=== PATIENT | male | born 1990 | race Caucasian/White ===

== ENCOUNTER 2017-02-14 22:41 | Emergency (ER) | payer MEDICAID ==
[~2017-02-14] VITALS: Ht 185.4 cm; Wt 83.9 kg
--- NOTE | 2017-02-14 23:14 | Emergency Room Report ---
History of Present Illness Time Seen by [id number] Presenting Problem in Triage Pt arrived:Walked Presenting Problem:PT. STATES RIGHT TESTICULAR PAIN AND PAIN DOWN HIS BACK. PT. ALSO STATES "I THINK I HAD A FEVER, I WAS SHAKING." PT. 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 N Clinical Suspician of Infection? N Mental Status: 1 - Regular (Normal Baseline) Sepsis Risk:Low Sepsis Risk Have you (or family members/close friends) recently traveled outside the [place]? N If Yes, where/when: Have you had exposure to infectious disease within the past month? N TB? Other? Specify: Source patient, RN notes reviewed, family, old records Exam Limitations no limitations Comment acute rt flank and testicular pain which started tonight assoc with n/v and shaking Cardiac Chest Pain Chest pain indicative of cardiac No Timing/Duration this evening Severity moderate ALLERGIES Coded Allergies: cefaclor (From [facility]) (I-RASH 02/14/17) History Medical History General CAD? No Angina: No MN: No Hypertension? No Hyperlipidemia? No CHF? No DVT? No PE? No COPD? No Asthma? No Anemia? No GERD? No Gastric ulcers? No GI Bleed? No Hernia? No Thyroid Problems? No Hypothyroidism? No CVA? No Seizures? No Diabetes? No Renal Insuffiency? Yes End Stage Renal Disease? No UTI? No Stones? No BPH? No GB Disease: No Nephritic Syndrome? No Asplenia? No Hepatitis? No Sickle Cell Disease? No Arthritis? No Migraines? No Cataracts? No Glaucoma? No MRSA? No HIV? No TB? No Anxiety? No Depression? No Cancer? No Immunization Hx DT/Tetanus > 10 Years Ago Surgical Hx Previous Surgery?Y PCL TONSILECTOMY KIDNEY DIALYSIS Social History Smoking Hx Smoker: Current Every Day Smoker Tobacco: No Type Cigarettes Are you/the child exposed to second-hand smoke: Yes Alcohol Alcohol: No Drugs none Additionial History Additional History no hematuria Review of Systems All Other Systems Reviewed and Negative Constitutional denies fever Eyes denies drainage ENT denies: ear pain, epistaxis, throat pain. Respiratory denies cough, denies shortness of breath, denies wheezing Cardiovascular denies chest pain, denies syncope Gastrointestinal denies abdominal pain, denies nausea, denies vomiting Genitourinary see HPI, scrotal/testicular pain. denies: dysuria, frequency, hesitancy, hematuria. Musculoskeletal denies joint pain, denies neck pain Skin denies rash Psychiatric/Neurological denies headache, denies seizure Physical Exam Vital Signs Vital Signs Date Time Temp Pulse Resp B/P Pulse O2 O2 Flow FiO2 Ox Delivery Rate 02/14 2350 89 20 150/77 97 02/14 2313 20 02/14 2246 98.5 83 22 143/76 100 - WBC >12,000 or <4,000 or 10% bands? 2 or more SIRS Criteria Met? B/P:150/77 MAP:98 Creatinine >2.0? UA output<0.5ml/kg/hr for 2 hrs? Platelet count >100,000? Lactate >2.0mmol/1? INR >1.2 or PTT > than 60 sec? Evidence of Organ Dysfunction? Provider documented clinical suspician of infection? N Sepsis Criteria Count: 1 Sepsis Risk: Low Sepsis Risk General Appearance no apparent distress Eye Exam - bilateral eye PERRL, bilateral eye EOMI Ear, Nose, Throat normal ENT inspection Neck supple Respiratory Status No: respiratory distress. 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 No Results/Orders Laboratory Tests 02/14/17 2355: Urine Color STRAW, Urine Appearance CLOUDY, Urine pH 6.5, Ur Specific [place] 1.025, Urine Protein TRACE H, Urine Ketones NEGATIVE, Urine Blood 3+ H, Urine Nitrate NEGATIVE, Urine Bilirubin NEGATIVE, Urine Urobilinogen 0.2, Ur Leukocyte Esterase NEGATIVE, Urine RBC TNTC, Urine WBC 3-5, Urine Bacteria 1+, Urine Mucus 1+, Urine Glucose NEGATIVE 02/14/175: Sodium 138, Potassium 3.3 L, Chloride 101, Carbon Dioxide 27, BUN 15, Creatinine 1.0, Estimated Creat Clear 133, Estimated GFR (MDRD) 90, Glucose 132 H, Calcium 8.8, Total Bilirubin 0.5, AST 9 L, ALT 15, Alkaline Phosphatase 66, Total Protein 7.3, Albumin 4.8, Globulin 2.5, Albumin/Globulin Ratio 1.9 H, WBC 9.5, RBC 5.28, Hgb 15.8, Hct 45.6, MCV 86.3, RDW 12.8, Plt Count 211, MPV 7.3 L , Gran % 80.8 H, Gran # 7.7, Lymphocytes % 13.6, Monocytes % 4.2, Eosinophils % 1.1, Basophils % 0.4, Lymphocytes # 1.3, Monocytes # 0.4, Eosinophils # 0.1, Basophils # 0.0, PUBS MCHC 34.7, MCH 29.9 Current Medication Orders Sig/Iglesia Start time Last Medication Dose Route Stop Time Status Admin Tamsulosin HCl 0 .STK-MED ONE 02/14 235 DC PO Tamsulosin HCl 0.4 MG ONCE ONE 02/14 2345 DC 02/15 PO 02/14 2346 0000 Ketorolac 0 .STK-MED ONE 02/14 2303 DC Tromethamine .ROUTE Ketorolac 30 MG ONCE ONE 02/14 2300 DC 02/14 Tromethamine IV 02/14 2301 2313 Sodium Chloride 10 ML PRN PRN 02/14 230 AC IV 02/15 225 Orders Procedure Date/time Status DIET-NOTHING BY MOUTH 02/[address] ABD & PELVIS W/O CONTRAST 02/[address] SCAN REQ 02/14 2253 Complete IV SALINE LOCK 02/14 2253 Active CULTURE, BLOOD 02/14 2253 Active URINALYSIS/COMPLETE 02/14 2253 Complete COMPLETE METABOLIC PANEL 02/14 2253 Complete CBC WITH AUTO DIFF 02/14 2253 Complete XRAY/CT/US XRAY/CT/US CT abdomen, pelvis CT interpretation by discussed w/radiologist Time results known: 0000 CT Results abnormal (4 mm stonr rt ) Departure Departure Time of Disposition 2355 Disposition DC Home or Self Care(routine) Clinical Impression Primary Impression: Renal colic on right side Condition STABLE Referrals Adamaris ALEMAN,Víctor Medrano MD,Edgardo Patient Instructions DI for Kidney Stones Additional Instructions use meds and see urology and pcp for follow up Discharge Counseling Counseled pt/family regarding diagnosis, test results, medications/RX, follow up needs Prescriptions Current Visit Scripts KETOROLAC TROMETHAMINE (TORADOL 10MG) 10 MG PO Q6HP PRN pain #12 TAB TAMSULOSIN HCL (Flomax 0.4MG) 0.4 MG PO QHS #21 [facility] ED Critical Care Critical Care No at 003
[2017-02-14 23:30] LABS: HEMOGLOBIN 15.8 g/dL (14.1-18.0); LYMPH # 1.3 K/mm3 (0.7-4.5); LYMPH % 13.6 % (10-50)
[2017-02-14] MEDS ORDERED: TORADOL10 MG PO (23:58)
[2017-02-15] MEDS ORDERED: FLOMAX 0.4MG C0.4 MG PO (00:02)
[2017-02-15 00:08] LABS: URINE BILIRUBIN - DIPSTICK NEGATIVE (NEG); URINE BLOOD 3+ (NEG)
[2017-02-15 00:50] VITALS: BP 150/77
--- NOTE | 2017-02-15 07:44 | RADIOLOGY REPORT PS360 ---
CT ABD PELVIS W/O CONTRAST CLINICAL INDICATION: Right flank pain FLANK PAIN ORDERING PHYSICIAN: Cuate Alvares MD PATIENT AGE: 26 years COMPARISON: None TECHNIQUE: Axial images obtained with sagittal and coronal reformats. PROCEDURE: Oral Contrast: None IV Contrast: None . FINDINGS: No acute finding in the lower chest. The liver, gallbladder, spleen, adrenal glands, and pancreas have an unremarkable unenhanced CT appearance. There are bilateral punctate renal calculi measuring up to 3 mm in the lower pole on the right in mid polar region on the left. There is mild right hydronephrosis secondary to a 3 mm proximal ureteral stone which is at the L3 level. No distal ureteral calculi or urinary bladder calculi evident. Unremarkable appendix. No intestinal obstruction or free air. No acute bony anomalies. IMPRESSION: 1. 3 mm proximal right ureteral stone with mild hydronephrosis. 2. Bilateral punctate renal calculi
== END 2017-02-15 00:51 | disposition home or self-care (01) ==
LOC: ER 22:41
PROVIDERS: Emergency Medicine
DX: N23 Unspecified renal colic (principal); F17.210 Nicotine dependence, cigarettes, uncomplicated